=== PATIENT | male | born 1960 | race African-American/Black ===

== ENCOUNTER 2019-01-21 16:39 | Inpatient (IN) | payer MEDICARE, MEDICAID ==
[~2019-01-21] VITALS: Ht 180.3 cm; Wt 109.9 kg
[~2019-01-21 16:39] MED LIST: CARV12.545 PO; CLON0.2T PO; ENAL20TA PO; ISOS1TAB PO; SPIR25TA6 PO
[2019-01-21] MEDS ORDERED: ASPIRIN 81MG TABLET PO ONE (17:30)
[2019-01-21] MEDS ORDERED: FUROSEMIDE 40MG/4ML VIAL IV ONE (17:30)
[2019-01-21 17:48] LABS: BASOPHILS % 1.4 % (0.0-2.0); HEMATOCRIT. 36.8 % (42.0-52.0); HEMOGLOBIN. 12.2 g/dL (14.0-18.0); LYMPHOCYTES % 18.3 % (20.0-50.0); MEAN CORPUSCULAR HEMOGLOBIN 32.4 pg (28.0-32.0); MEAN CORPUSCULAR VOLUME 97.5 fL (80.0-94.0); MEAN PLATELET VOLUME 8.3 fl (7.4-10.4); NEUTROPHILS % 66.3 % (40.0-76.0); PLATELET 207 x1000/uL (130-400); RED BLOOD CELL COUNT 3.77 mill/uL (4.7-6.1); RED CELL DISTRIBUTION WIDTH 14.3 % (11.6-14.6)
[2019-01-21 17:50] LABS: CHLORIDE 109 mEq/L (98-107)
[2019-01-21 17:53] LABS: INR 1.1; PARTIAL THROMBOPLASTIN TIME 29.4 sec (23.4-31.0); PROTHROMBIN TIME 11.6 sec (9.6-11.0)
[2019-01-21 17:55] LABS: ETHANOL BLOOD < 10 mg/dL
[2019-01-21 18:46] LABS: CLARITY URINE CLEAR (CLEAR); COLOR URINE YELLOW (YELLOW); KETONES URINE NEGATIVE (NEGATIVE); LEUKOCYTE ESTERASE URINE 1+ (NEGATIVE); NITRITE URINE NEGATIVE (NEGATIVE); OCCULT BLOOD URINE NEGATIVE (NEGATIVE); PH URINE 5.5 (4.5-8.0); PROTEIN URINE NEGATIVE (NEGATIVE)
[2019-01-21 19:03] LABS: *BARBITURATES SCREEN URINE NEGATIVE (NEGATIVE); *BENZODIAZEPINES SCREEN URINE NEGATIVE (NEGATIVE); *COCAINE SCREEN URINE NEGATIVE (NEGATIVE)
[2019-01-21 19:04] LABS: *AMPHETAMINES SCREEN URINE NEGATIVE (NEGATIVE); CANNABINOID URINE SCREEN NEGATIVE (NEGATIVE); METHADONE URINE SCREEN NEGATIVE (NEGATIVE); OPIATES URINE SCREEN NEGATIVE (NEGATIVE); PHENCYCLIDINE URINE SCREEN NEGATIVE (NEGATIVE)
[2019-01-21] MEDS ORDERED: ONDANSETRON HCL 4MG/2ML INJ IV PRN (19:45)
[2019-01-21] MEDS ORDERED: DIPHENHYDRAMINE 50MG/ML VIAL IV PRN (19:45)
[2019-01-21] MEDS ORDERED: IPRATROPIUM/ALBUTEROL 0.5-3(2.5)MG/3ML NEB INH PRN (19:45)
[2019-01-21] MEDS ORDERED: CLONIDINE 0.1MG TABLET PO PRN (19:45)
[2019-01-21] MEDS ORDERED: GUAIFENESIN 200MG/10ML SUGAR FREE UDC PO PRN (19:45)
[2019-01-21] MEDS ORDERED: ENOXAPARIN 40MG/0.4ML SYR SUBCUT SCH (19:45)
[2019-01-21] MEDS: ENOXAPARIN 30MG/0.3ML SYR SUBCUT SCH (22:30)
[2019-01-21 23:00] VITALS: BP 155/111
[2019-01-21] MEDS: FUROSEMIDE 40MG/4ML VIAL IVP SCH (23:30)
[2019-01-21] MEDS: SODIUM CHLORIDE 0.9% INJ 3ML FLUSH IVF SCH (23:30)
[2019-01-21] MEDS ORDERED: ZOLPIDEM TARTRATE 5MG TABLET PO PRN (23:30)
[2019-01-21] MEDS ORDERED: HYDRALAZINE 20MG/ML VIAL IV PRN (23:30)
[2019-01-21] MEDS: ISOSORB DINIT/HYDRALAZINE HCL 20/37.5MG TABLET PO SCH (23:30)
[2019-01-22] VITALS: BP 155/111
[2019-01-22] MEDS: CARVEDILOL 6.25 MG TABLET PO SCH ×3 (01:36→21:05)
[2019-01-22 04:00] VITALS: BP 125/76
[2019-01-22] MEDS: ISOSORB DINIT/HYDRALAZINE HCL 20/37.5MG TABLET PO SCH ×3 (06:00→21:05)
[2019-01-22] MEDS: SODIUM CHLORIDE 0.9% INJ 3ML FLUSH IVF SCH ×3 (06:00→21:05)
[2019-01-22 07:53] LABS: BASOPHILS % 0.9 % (0.0-2.0); CHLORIDE 107 mEq/L (98-107); EOSINOPHILS % 4.5 % (0.0-5.0); HEMATOCRIT. 33.3 % (42.0-52.0); HEMOGLOBIN. 11.1 g/dL (14.0-18.0); LYMPHOCYTES % 17.3 % (20.0-50.0); MEAN CORPUSCULAR HEMOGLOBIN 32.4 pg (28.0-32.0); MEAN CORPUSCULAR VOLUME 97.2 fL (80.0-94.0); MONOCYTES % 12.3 % (2.0-8.0); PLATELET 191 x1000/uL (130-400); RED BLOOD CELL COUNT 3.43 mill/uL (4.7-6.1); RED CELL DISTRIBUTION WIDTH 14.2 % (11.6-14.6)
[2019-01-22 08:00] VITALS: BP 147/99
[2019-01-22 08:02] LABS: PHOSPHORUS 3.5 mg/dL (2.5-4.9)
[2019-01-22] MEDS: LOSARTAN POTASSIUM 50 MG TABLET PO SCH (08:25)
[2019-01-22] MEDS: SPIRONOLACTONE 25MG TABLET PO SCH (08:25)
[2019-01-22] MEDS: FUROSEMIDE 40MG/4ML VIAL IVP SCH ×2 (08:28→21:05)
[2019-01-22] MEDS: ENOXAPARIN 30MG/0.3ML SYR SUBCUT SCH ×2 (08:28→21:00)
[2019-01-22] MEDS: ACETAMINOPHEN 325MG TABLET PO PRN (12:08)
[2019-01-22 16:00] VITALS: BP 138/80
[2019-01-22 20:00] VITALS: BP 127/88
[2019-01-23] VITALS (7 sets, daily range): BP systolic 102–139; BP diastolic 56–91
[2019-01-23] MEDS: ISOSORB DINIT/HYDRALAZINE HCL 20/37.5MG TABLET PO SCH ×3 (05:55→21:27)
[2019-01-23] MEDS: SODIUM CHLORIDE 0.9% INJ 3ML FLUSH IVF SCH ×3 (05:55→21:34)
[2019-01-23] MEDS: ACETAMINOPHEN 325MG TABLET PO PRN (06:10)
[2019-01-23 06:45] LABS: CHLORIDE 103 mEq/L (98-107)
[2019-01-23] MEDS: SPIRONOLACTONE 25MG TABLET PO SCH (08:43)
[2019-01-23] MEDS: FUROSEMIDE 40MG/4ML VIAL IVP SCH (08:43)
[2019-01-23] MEDS: LOSARTAN POTASSIUM 50 MG TABLET PO SCH (08:43)
[2019-01-23] MEDS: CARVEDILOL 6.25 MG TABLET PO SCH ×2 (08:43→21:27)
[2019-01-23] MEDS: ENOXAPARIN 30MG/0.3ML SYR SUBCUT SCH ×2 (08:49→21:27)
[2019-01-24] VITALS: BP 93/54
[2019-01-24 04:00] VITALS: BP 98/57
[2019-01-24] MEDS: SODIUM CHLORIDE 0.9% INJ 3ML FLUSH IVF SCH (05:29)
[2019-01-24] MEDS: ISOSORB DINIT/HYDRALAZINE HCL 20/37.5MG TABLET PO SCH ×2 (05:30→14:12)
[2019-01-24 06:33] LABS: CHLORIDE 104 mEq/L (98-107)
[2019-01-24 08:00] VITALS: BP 106/71
[2019-01-24] MEDS ORDERED: FUROSEMIDE 40MG TABLET PO SCH (09:00)
[2019-01-24] MEDS: LOSARTAN POTASSIUM 50 MG TABLET PO SCH (09:00)
[2019-01-24] MEDS: CARVEDILOL 6.25 MG TABLET PO SCH (09:00)
[2019-01-24] MEDS: SPIRONOLACTONE 25MG TABLET PO SCH (09:16)
[2019-01-24] MEDS: ENOXAPARIN 30MG/0.3ML SYR SUBCUT SCH (09:17)
[2019-01-24 12:00] VITALS: BP 117/67
[2019-01-24] MEDS ORDERED: COR6 PO (15:08)
[2019-01-24] MEDS ORDERED: ISOS1TAB MT (15:08)
[2019-01-24] MEDS ORDERED: ISOS30TA12 PO (15:08)
[2019-01-24] MEDS ORDERED: SPIR25TA6 PO (15:08)
[2019-01-24 15:49] VITALS: BP 105/54
[2019-01-24 16:00] VITALS: BP 105/54
== END 2019-01-24 17:00 | disposition home health service (06) | DRG 291 ==
LOC: ER 16:39 → 6WST 20:19 → EDBEDREQTM 20:25 → EDBEDREQ 20:25 → ENRESERV 21:10 → 6WST 23:18
PROVIDERS: ADMIT Internal Medicine; ATTEND Internal Medicine
PROC: 0W9G3ZZ Drainage of Peritoneal Cavity, Percutaneous Approach (ICD-10-PCS; principal; 2019-01-23)
DX: I13.0 Hypertensive heart and chronic kidney disease with heart failure and stage 1 through stage 4 chronic kidney disease, or unspecified chronic kidney disease (principal); I50.23 Acute on chronic systolic (congestive) heart failure; R18.8 Other ascites; N18.9 Chronic kidney disease, unspecified; I42.9 Cardiomyopathy, unspecified; E66.01 Morbid (severe) obesity due to excess calories; Z95.810 Presence of automatic (implantable) cardiac defibrillator; Z68.33 Body mass index [BMI] 33.0-33.9, adult; Z82.49 Family history of ischemic heart disease and other diseases of the circulatory system
CPT/HCPCS: 36415; 49083; 71045; 76705; 80048; 80305; 80320; 81003; 83735; 83880; 84100; 84484; 93005; 93306; 93970; 96374; 99285; J1650; J1940; G0480

== ENCOUNTER → 2020-01-17 | Outpatient (CLI) | payer MEDICARE, MEDICAID ==
[~2020-01-17] MED LIST changes: -CARV12.545 PO; -CLON0.2T PO; +COR6 PO; -ENAL20TA PO; +ISOS1TAB MT; -ISOS1TAB PO; +ISOS30TA12 PO
[2020-01-17 09:25] LABS: BASOPHILS % 0.9 % (0.0-2.0); EOSINOPHILS % 3.4 % (0.0-5.0); HEMATOCRIT. 43.2 % (42.0-52.0); HEMOGLOBIN. 14.4 g/dL (14.0-18.0); LYMPHOCYTES % 26.7 % (20.0-50.0); MEAN CORPUSCULAR HEMOGLOBIN 33.5 pg (28.0-32.0); MEAN CORPUSCULAR VOLUME 100.5 fL (80.0-94.0); MEAN PLATELET VOLUME 9.6 fl (7.4-10.4); MONOCYTES % 10.3 % (2.0-8.0); NEUTROPHILS % 58.7 % (40.0-76.0); PLATELET 170 x1000/uL (130-400); RED CELL DISTRIBUTION WIDTH 13.2 % (11.6-14.6)
[2020-01-17 09:32] LABS: PROTHROMBIN TIME 10.5 sec (9.6-11.0)
== END | disposition home or self-care (01) ==
LOC: LAB 08:44
PROVIDERS: ATTEND Internal Medicine
DX: I11.0 Hypertensive heart disease with heart failure (principal); I50.9 Heart failure, unspecified
CPT/HCPCS: 36415; 85025

== ENCOUNTER → 2020-01-25 | Outpatient (CLI) | payer MEDICARE, MEDICAID | END | disposition home or self-care (01) | LOC: LAB 06:58 | PROVIDERS: ATTEND Internal Medicine | DX: Z20.828 Contact with and (suspected) exposure to other viral communicable diseases (principal) | CPT/HCPCS: C9803; U0003 ==

== ENCOUNTER → 2020-01-27 | Day surgery (SDC) | payer MEDICARE, MEDICAID ==
[~2020-01-27] MED LIST changes: +LIDOCAINE HCL 1% 20ML VIAL (Pyxis) INJ ONE; +SODIUM BICARBONATE 4% (2.4MEQ) 5ML VIAL IV ONE
== END | disposition home or self-care (01) ==
LOC: RAD 10:30
PROVIDERS: ATTEND Internal Medicine
DX: K80.20 Calculus of gallbladder without cholecystitis without obstruction (principal); Z79.899 Other long term (current) drug therapy
CPT/HCPCS: 76705; J3490